=== PATIENT | male | born 1965 | race Caucasian/White ===

== ENCOUNTER 2016-12-11 20:16 | Inpatient (IN) | payer MEDICAID ==
[~2016-12-11] VITALS: Ht 185.4 cm; Wt 73.2 kg
[2016-12-11 21:28] LABS: BASOPHIL % 0.7 % (0-2); PLATELET COUNT 224 x10^3mcL (130-400)
[2016-12-11 21:30] LABS: RED CELL DISTRIBUTION WIDTH 15.3 % (11.5-14.5)
[2016-12-11 21:34] LABS: CALCIUM 8.4 mg/dL (8.5-10.1); CARBON DIOXIDE 30.9 mmol/L (21-32); CHLORIDE SERUM 103 mmol/L (98-107); GFR1 > 60 mL/min; GLUCOSE SERUM 81 mg/dL (74-106); SODIUM SERUM 142 mmol/L (136-145)
[2016-12-11] MEDS ORDERED: MILLIPRED5 M1 (21:37)
[2016-12-11] MEDS ORDERED: ALBUTEROL1.25 MG/3 (21:37)
[2016-12-11 21:38] LABS: ALBUMIN 3.7 g/dL (3.4-5.0); ALKALINE PHOSPHATASE 92 U/L (46-116); ALT/SGPT 78 U/L (16-63); AST/SGOT 93 U/L (15-37); BILIRUBIN TOTAL 0.3 mg/dL (0.20-1.00); CHOLESTEROL 238 mg/dL (<200); CHOLESTEROL/HDL RATIO 2.1; HDL CHOLESTEROL 113 mg/dL (40-60); LIPASE 331 IU/L (73-393); TOTAL PROTEIN, SERUM 7.8 g/dL (6.4-8.2); TRIGLYCERIDES 67 mg/dL (<150)
[2016-12-11 21:52] LABS: T3 TOTAL 0.96 ng/mL
[2016-12-11 22:04] LABS: FREE T4 1.1 ng/dL (0.76-1.46); FREE THYROXINE INDEX 2.3 ug/dL (1.4-4.5); T4(THYROXINE) 5.8 ug/dL (4.7-13.3)
[2016-12-11 22:17] LABS: UA SPECIFIC GRAVITY >=1.030 (1.005-1.035); microscopic required? YES; urine erythrocyte NEGATIVE (NEGATIVE)
[2016-12-11 22:26] LABS: AMPHETAMINE QUAL UR NONE DETECTED (NEG <=1000)
[2016-12-11 22:36] VITALS: BP 115/75
[2016-12-11 23:23] LABS: MAGNESIUM 2.1 mg/dL (1.8-2.4); PHOSPHOROUS 3.9 mg/dL (2.5-4.9)
[2016-12-12 05:33] VITALS: BP 114/74
[2016-12-12 05:43] VITALS: BP 121/72
[2016-12-12 06:18] LABS: BASOPHIL % 0.4 % (0-2); PLATELET COUNT 198 x10^3mcL (130-400)
[2016-12-12 06:29] LABS: CALCIUM 7.5 mg/dL (8.5-10.1); CARBON DIOXIDE 24.3 mmol/L (21-32); CHLORIDE SERUM 107 mmol/L (98-107); CREATININE SERUM 0.8 mg/dL (0.7-1.3); GFR1 > 60 mL/min; GLUCOSE SERUM 66 mg/dL (74-106); MAGNESIUM 2.1 mg/dL (1.8-2.4); PHOSPHOROUS 3.3 mg/dL (2.5-4.9); POTASSIUM SERUM 3.9 mmol/L (3.5-5.1); SODIUM SERUM 144 mmol/L (136-145)
[2016-12-12 06:59] LABS: RED CELL DISTRIBUTION WIDTH 15.7 % (11.5-14.5)
[2016-12-12 09:16] VITALS: BP 136/85
[2016-12-12 17:12] VITALS: BP 125/85
[2016-12-12 21:38] VITALS: BP 138/83
[2016-12-13 05:33] VITALS: BP 150/92
[2016-12-13 06:03] VITALS: BP 150/92
[2016-12-13 06:17] LABS: CALCIUM 8.1 mg/dL (8.5-10.1); CARBON DIOXIDE 27.8 mmol/L (21-32); CHLORIDE SERUM 101 mmol/L (98-107); CREATININE SERUM 0.7 mg/dL (0.7-1.3); GFR1 > 60 mL/min; GLUCOSE SERUM 85 mg/dL (74-106); SODIUM SERUM 138 mmol/L (136-145)
[2016-12-13 09:31] VITALS: BP 145/92
[2016-12-13 12:31] VITALS: BP 133/88
== END 2016-12-13 14:00 | disposition left against medical advice (07) | DRG 770 ==
LOC: ED 20:16 → DU 21:16
PROVIDERS: Specialist; ADMIT Family Medicine
DX: F10.239 Alcohol dependence with withdrawal, unspecified (principal); N17.0 Acute kidney failure with tubular necrosis; G92 Toxic encephalopathy; J44.1 Chronic obstructive pulmonary disease with (acute) exacerbation; E78.2 Mixed hyperlipidemia; F17.210 Nicotine dependence, cigarettes, uncomplicated; Z68.21 Body mass index [BMI] 21.0-21.9, adult
CPT/HCPCS: 83880; 84439; 94150; G0480; J2060; J2405; J3411; J3475; J3490; J3535; J7030; J7512; J7613; J7620; J7644; Q0092

== ENCOUNTER 2017-04-29 18:51 | Inpatient (IN) | payer OTHER ==
[~2017-04-29] VITALS: Ht 193 cm; Wt 71.4 kg
[~2017-04-29 18:51] MED LIST: ALBUTEROL1.25 MG/3; MILLIPRED5 M1
[2017-04-29 21:03] LABS: BASOPHIL % 0.5 % (0-2); PLATELET COUNT 296 x10^3mcL (130-400); RED CELL DISTRIBUTION WIDTH 14.3 % (11.5-14.5)
[2017-04-29 21:13] LABS: CALCIUM 8.4 mg/dL (8.5-10.1); CARBON DIOXIDE 32.7 mmol/L (21-32); CHLORIDE SERUM 100 mmol/L (98-107); CREATININE SERUM 0.9 mg/dL (0.7-1.3); GFR1 > 60 mL/min; GLUCOSE SERUM 95 mg/dL (74-106); POTASSIUM SERUM 4.3 mmol/L (3.5-5.1); SODIUM SERUM 136 mmol/L (136-145)
[2017-04-29 21:18] LABS: ALBUMIN 3.8 g/dL (3.4-5.0); ALKALINE PHOSPHATASE 83 U/L (46-116); ALT/SGPT 24 U/L (16-63); AST/SGOT 28 U/L (15-37); BILIRUBIN TOTAL 0.63 mg/dL (0.20-1.00); TOTAL PROTEIN, SERUM 8.1 g/dL (6.4-8.2)
[2017-04-29 21:33] LABS: microscopic required? NO
[2017-04-29 21:40] LABS: urine erythrocyte NEGATIVE (NEGATIVE)
[2017-04-30] VITALS (7 sets, daily range): BP systolic 100–159; BP diastolic 46–95
[2017-04-30 01:58] LABS: MAGNESIUM 2.2 mg/dL (1.8-2.4); PHOSPHOROUS 3.8 mg/dL (2.5-4.9)
[2017-04-30 02:05] LABS: FREE T4 1.08 ng/dL (0.76-1.46); FREE THYROXINE INDEX 2.8 ug/dL (1.4-4.5); T4(THYROXINE) 7.5 ug/dL (4.7-13.3)
[2017-04-30 02:12] LABS: T3 TOTAL 0.74 ng/mL
[2017-04-30 02:29] LABS: AMPHETAMINE QUAL UR NONE DETECTED (NEG <=1000)
[2017-04-30 06:25] LABS: BASOPHIL % 0.2 % (0-2); PLATELET COUNT 272 x10^3mcL (130-400); RED CELL DISTRIBUTION WIDTH 14.1 % (11.5-14.5)
[2017-04-30 06:57] LABS: CALCIUM 8.5 mg/dL (8.5-10.1); CARBON DIOXIDE 23.4 mmol/L (21-32); CHLORIDE SERUM 102 mmol/L (98-107); CHOLESTEROL 175 mg/dL (<200); CREATININE SERUM 0.9 mg/dL (0.7-1.3); GFR1 > 60 mL/min; GLUCOSE SERUM 133 mg/dL (74-106); POTASSIUM SERUM 4.5 mmol/L (3.5-5.1); SODIUM SERUM 139 mmol/L (136-145)
[2017-04-30 07:01] LABS: CHOLESTEROL/HDL RATIO 5.3; HDL CHOLESTEROL 33 mg/dL (40-60); TRIGLYCERIDES 244 mg/dL (<150)
[2017-05-01 05:58] VITALS: BP 96/50
[2017-05-01 06:58] LABS: MAGNESIUM 2.1 mg/dL (1.8-2.4); PHOSPHOROUS 3.9 mg/dL (2.5-4.9)
[2017-05-01 10:49] VITALS: BP 120/74
[2017-05-01] MEDS ORDERED: ATI1 PO (11:31)
[2017-05-01 12:00] VITALS: BP 120/74
== END 2017-05-01 12:48 | disposition home or self-care (01) | DRG 775 ==
LOC: ED 18:51 → DU 04-30 00:14
PROVIDERS: Emergency Medicine; ADMIT Family Medicine
DX: F10.229 Alcohol dependence with intoxication, unspecified (principal); F10.239 Alcohol dependence with withdrawal, unspecified; G92 Toxic encephalopathy; J45.901 Unspecified asthma with (acute) exacerbation; E83.51 Hypocalcemia; E78.5 Hyperlipidemia, unspecified; Z68.1 Body mass index [BMI] 19.9 or less, adult; F17.210 Nicotine dependence, cigarettes, uncomplicated; T51.0X1A Toxic effect of ethanol, accidental (unintentional), initial encounter
CPT/HCPCS: 83880; 84439; 94150; G0480; J2920; J2930; J3490; J7030

== ENCOUNTER 2017-07-17 15:31 | Emergency (ER) | payer OTHER ==
[~2017-07-17] VITALS: Ht 193 cm; Wt 76.7 kg
[~2017-07-17 15:31] MED LIST changes: +ATI1 PO
[2017-07-17 16:17] VITALS: Ht 193 cm; Wt 76.7 kg
[2017-07-17 17:57] LABS: BASOPHIL % 1.8 % (0-2); PLATELET COUNT 346 x10^3mcL (130-400); RED CELL DISTRIBUTION WIDTH 14.3 % (11.5-14.5)
[2017-07-17 18:09] LABS: CALCIUM 8.4 mg/dL (8.5-10.1); CARBON DIOXIDE 28.7 mmol/L (21-32); CHLORIDE SERUM 102 mmol/L (98-107); CREATININE SERUM 0.8 mg/dL (0.7-1.3); GFR1 > 60 mL/min; GLUCOSE SERUM 105 mg/dL (74-106); POTASSIUM SERUM 3.7 mmol/L (3.5-5.1); SODIUM SERUM 141 mmol/L (136-145)
[2017-07-17 18:12] LABS: ALBUMIN 3.6 g/dL (3.4-5.0); ALKALINE PHOSPHATASE 284 U/L (46-116); ALT/SGPT 66 U/L (16-63); AMYLASE 91 U/L (25-115); AST/SGOT 62 U/L (15-37); BILIRUBIN TOTAL 0.5 mg/dL (0.20-1.00); LIPASE 994 IU/L (73-393); TOTAL PROTEIN, SERUM 7.9 g/dL (6.4-8.2)
[2017-07-17 18:13] LABS: UA SPECIFIC GRAVITY >=1.030 (1.005-1.035); microscopic required? YES; urine erythrocyte NEGATIVE (NEGATIVE)
[2017-07-17 21:01] VITALS: BP 143/78
== END 2017-07-17 21:01 | disposition home or self-care (01) ==
LOC: ED 15:31
PROVIDERS: Emergency Medicine
DX: K29.00 Acute gastritis without bleeding (principal); K85.90 Acute pancreatitis without necrosis or infection, unspecified; F10.239 Alcohol dependence with withdrawal, unspecified
CPT/HCPCS: 83880; 99406; G0480; J2405; J3411; J3475; J3490; J7030; Q0092

== ENCOUNTER 2017-07-23 12:02 | Inpatient (IN) | payer OTHER ==
[~2017-07-23] VITALS: Ht 193 cm; Wt 63.6 kg
[2017-07-23 12:14] VITALS: Ht 193 cm; Wt 63.6 kg
[2017-07-23 13:22] LABS: BASOPHIL % 0.5 % (0-2); PLATELET COUNT 337 x10^3mcL (130-400)
[2017-07-23 13:24] LABS: RED CELL DISTRIBUTION WIDTH 15.2 % (11.5-14.5)
[2017-07-23 13:33] LABS: CHLORIDE SERUM 99 mmol/L (98-107); CREATININE SERUM 0.7 mg/dL (0.7-1.3); GFR1 > 60 mL/min; GLUCOSE SERUM 102 mg/dL (74-106); POTASSIUM SERUM 4.3 mmol/L (3.5-5.1); SODIUM SERUM 135 mmol/L (136-145)
[2017-07-23 13:37] LABS: ALKALINE PHOSPHATASE 764 U/L (46-116); ALT/SGPT 201 U/L (16-63); AST/SGOT 198 U/L (15-37); BILIRUBIN TOTAL 3.01 mg/dL (0.20-1.00); TOTAL PROTEIN, SERUM 7.6 g/dL (6.4-8.2)
[2017-07-23 13:41] LABS: ALBUMIN 3.1 g/dL (3.4-5.0)
[2017-07-23 13:53] LABS: LIPASE 2180 IU/L (73-393)
[2017-07-23] MEDS ORDERED: ATIVAN1 MG (14:24)
[2017-07-23] MEDS ORDERED: TRAMADOL HCL50 MG (14:29)
[2017-07-23 14:51] LABS: microscopic required? NO
[2017-07-23 15:28] VITALS: BP 128/93
[2017-07-23 15:37] VITALS: BP 125/87
[2017-07-23 15:49] LABS: UA SPECIFIC GRAVITY 1.025 (1.005-1.035); urine erythrocyte NEGATIVE (NEGATIVE)
[2017-07-23 15:52] LABS: AMPHETAMINE QUAL UR NONE DETECTED (NEG <=1000)
[2017-07-23 16:10] LABS: MAGNESIUM 2.1 mg/dL (1.8-2.4)
[2017-07-23 16:12] LABS: CHOLESTEROL/HDL RATIO 2.9
[2017-07-23 19:40] VITALS: BP 129/86
[2017-07-23 21:26] VITALS: BP 115/70
[2017-07-24 05:57] VITALS: BP 138/89
[2017-07-24 07:32] LABS: BASOPHIL % 0.4 % (0-2); CALCIUM 8.6 mg/dL (8.5-10.1); CARBON DIOXIDE 26.4 mmol/L (21-32); CHLORIDE SERUM 101 mmol/L (98-107); CREATININE SERUM 0.7 mg/dL (0.7-1.3); GFR1 > 60 mL/min; GLUCOSE SERUM 96 mg/dL (74-106); PLATELET COUNT 303 x10^3mcL (130-400); RED CELL DISTRIBUTION WIDTH 15.5 % (11.5-14.5); SODIUM SERUM 135 mmol/L (136-145)
[2017-07-24 10:35] VITALS: BP 134/90
[2017-07-24 13:58] VITALS: BP 123/82
[2017-07-24 18:39] VITALS: BP 122/84
[2017-07-24 20:36] VITALS: BP 147/89
[2017-07-25 05:08] VITALS: BP 124/72
[2017-07-25 07:03] LABS: BASOPHIL % 0.3 % (0-2); PLATELET COUNT 305 x10^3mcL (130-400)
[2017-07-25 07:13] LABS: RED CELL DISTRIBUTION WIDTH 15.4 % (11.5-14.5)
[2017-07-25 07:34] LABS: CALCIUM 8.7 mg/dL (8.5-10.1); CARBON DIOXIDE 27.8 mmol/L (21-32); CHLORIDE SERUM 99 mmol/L (98-107); CREATININE SERUM 0.8 mg/dL (0.7-1.3); GFR1 > 60 mL/min; GLUCOSE SERUM 149 mg/dL (74-106); MAGNESIUM 2.2 mg/dL (1.8-2.4); PHOSPHOROUS 3.5 mg/dL (2.5-4.9); POTASSIUM SERUM 3.9 mmol/L (3.5-5.1); SODIUM SERUM 135 mmol/L (136-145)
[2017-07-25 10:00] VITALS: BP 125/86
[2017-07-25 13:07] LABS: BILIRUBIN DIRECT 2.28 mg/dL (0.0-0.2); BILIRUBIN TOTAL 2.9 mg/dL (0.20-1.00); TOTAL PROTEIN, SERUM 6.8 g/dL (6.4-8.2)
[2017-07-25 13:08] LABS: ALBUMIN 2.8 g/dL (3.4-5.0)
[2017-07-25 13:30] VITALS: BP 127/85
[2017-07-25 16:52] VITALS: BP 148/91
[2017-07-25 21:05] VITALS: BP 156/98
[2017-07-25 22:05] VITALS: BP 141/90
[2017-07-26 05:31] VITALS: BP 121/76
[2017-07-26 07:10] LABS: CALCIUM 8.6 mg/dL (8.5-10.1); CARBON DIOXIDE 26.4 mmol/L (21-32); CHLORIDE SERUM 99 mmol/L (98-107); CREATININE SERUM 0.7 mg/dL (0.7-1.3); GFR1 > 60 mL/min; GLUCOSE SERUM 82 mg/dL (74-106); MAGNESIUM 1.9 mg/dL (1.8-2.4); PHOSPHOROUS 3.7 mg/dL (2.5-4.9); POTASSIUM SERUM 3.8 mmol/L (3.5-5.1); SODIUM SERUM 136 mmol/L (136-145)
[2017-07-26 07:26] LABS: BASOPHIL % 0.5 % (0-2); PLATELET COUNT 320 x10^3mcL (130-400); RED CELL DISTRIBUTION WIDTH 15.5 % (11.5-14.5)
[2017-07-26 09:41] VITALS: BP 127/87
[2017-07-26 12:33] VITALS: BP 114/83
[2017-07-26 13:56] LABS: ALBUMIN 2.8 g/dL (3.4-5.0); BILIRUBIN DIRECT 0.81 mg/dL (0.0-0.2); BILIRUBIN TOTAL 1.43 mg/dL (0.20-1.00); TOTAL PROTEIN, SERUM 6.7 g/dL (6.4-8.2)
[2017-07-26] MEDS ORDERED: FOL1 PO (14:22)
[2017-07-26] MEDS ORDERED: THERA TABS1 TAB PO (14:23)
[2017-07-26] MEDS ORDERED: NIC21 TD (14:23)
[2017-07-26] MEDS ORDERED: THI100 PO (14:23)
[2017-07-26] MEDS ORDERED: FLA250 PO (14:38)
[2017-07-26] MEDS ORDERED: LEVAQUIN750 MG PO (14:38)
[2017-07-26] MEDS ORDERED: LAC PO (14:38)
[2017-07-26 14:44] VITALS: BP 114/83
== END 2017-07-26 15:12 | disposition home or self-care (01) | DRG 282 ==
LOC: ED 12:02 → DU 14:38 → EDBEDREQ 14:38 → DU 15:26 → MU 07-26 09:01
PROVIDERS: Emergency Medicine; Family Medicine; Internal Medicine Gastroenterology
PROC: 0D798ZZ Dilation of Duodenum, Via Natural or Artificial Opening Endoscopic (ICD-10-PCS; principal; 2017-07-25 11:00)
PROC: BF101ZZ Fluoroscopy of Bile Ducts using Low Osmolar Contrast (ICD-10-PCS; 2017-07-25 11:00)
PROC: 0F798DZ Dilation of Common Bile Duct with Intraluminal Device, Via Natural or Artificial Opening Endoscopic (ICD-10-PCS; 2017-07-25 11:00)
DX: K85.90 Acute pancreatitis without necrosis or infection, unspecified (principal); K31.5 Obstruction of duodenum; R56.9 Unspecified convulsions; K70.10 Alcoholic hepatitis without ascites; R74.0 Nonspecific elevation of levels of transaminase and lactic acid dehydrogenase [LDH]; J44.9 Chronic obstructive pulmonary disease, unspecified; F17.210 Nicotine dependence, cigarettes, uncomplicated; F10.10 Alcohol abuse, uncomplicated; Z68.21 Body mass index [BMI] 21.0-21.9, adult; Z98.41 Cataract extraction status, right eye
CPT/HCPCS: 43235; 43262; 83880; 94150; C1769; C2625; C9113; G0480; J1610; J2175; J2250; J2405; J2543; J2704; J3010; J3490; J7030; J7120; J7620; Q0092; Q9967

== ENCOUNTER 2017-09-05 15:09 | Emergency (ER) | payer OTHER ==
[~2017-09-05] VITALS: Ht 193 cm; Wt 75.0 kg
[~2017-09-05 15:09] MED LIST changes: +ATIVAN1 MG; +FLA250 PO; +FOL1 PO; +LAC PO; +LEVAQUIN750 MG PO; +NIC21 TD; +THERA TABS1 TAB PO; +THI100 PO; +TRAMADOL HCL50 MG
[2017-09-05 15:20] VITALS: Ht 193 cm; Wt 75.0 kg
[2017-09-05 16:10] LABS: BASOPHIL % 0.6 % (0-2); RED CELL DISTRIBUTION WIDTH 13.4 % (11.5-14.5)
[2017-09-05 16:15] LABS: CALCIUM 10.5 mg/dL (8.5-10.1); CARBON DIOXIDE 32.3 mmol/L (21-32); CHLORIDE SERUM 101 mmol/L (98-107); CREATININE SERUM 0.9 mg/dL (0.7-1.3); GFR1 > 60 mL/min; GLUCOSE SERUM 129 mg/dL (74-106); POTASSIUM SERUM 3.7 mmol/L (3.5-5.1); SODIUM SERUM 140 mmol/L (136-145)
[2017-09-05 16:18] LABS: PLATELET COUNT 446 x10^3mcL (130-400)
[2017-09-05 16:20] LABS: ALBUMIN 3.7 g/dL (3.4-5.0); ALKALINE PHOSPHATASE 104 U/L (46-116); ALT/SGPT 25 U/L (16-63); AST/SGOT 13 U/L (15-37); BILIRUBIN TOTAL 0.3 mg/dL (0.20-1.00); LIPASE 230 IU/L (73-393)
[2017-09-05 18:12] VITALS: BP 104/60
== END 2017-09-05 18:12 | disposition home or self-care (01) ==
LOC: ED 15:09
PROVIDERS: Emergency Medicine
DX: R10.11 Right upper quadrant pain (principal); F17.210 Nicotine dependence, cigarettes, uncomplicated; Z71.6 Tobacco abuse counseling
CPT/HCPCS: 99406; J1885; J2550; J3010; J7030; Q0092; Q0162

== ENCOUNTER 2017-09-06 14:34 | Inpatient (IN) | payer OTHER ==
[~2017-09-06] VITALS: Ht 193 cm; Wt 70.1 kg
[2017-09-06 14:57] VITALS: Ht 193 cm; Wt 70.1 kg
[2017-09-06 16:45] LABS: CALCIUM 9.6 mg/dL (8.5-10.1); CARBON DIOXIDE 32.6 mmol/L (21-32); CHLORIDE SERUM 99 mmol/L (98-107); CREATININE SERUM 0.9 mg/dL (0.7-1.3); GFR1 > 60 mL/min; GLUCOSE SERUM 123 mg/dL (74-106); POTASSIUM SERUM 3.3 mmol/L (3.5-5.1); SODIUM SERUM 140 mmol/L (136-145)
[2017-09-06 16:49] LABS: ALBUMIN 3.7 g/dL (3.4-5.0); ALKALINE PHOSPHATASE 109 U/L (46-116); ALT/SGPT 15 U/L (16-63); AMYLASE 35 U/L (25-115); AST/SGOT 14 U/L (15-37); BILIRUBIN TOTAL 0.3 mg/dL (0.20-1.00); LIPASE 222 IU/L (73-393); TOTAL PROTEIN, SERUM 8.2 g/dL (6.4-8.2)
[2017-09-06 16:58] LABS: BASOPHIL % 0.5 % (0-2); RED CELL DISTRIBUTION WIDTH 13.7 % (11.5-14.5)
[2017-09-06 17:01] LABS: PLATELET COUNT 429 x10^3mcL (130-400)
[2017-09-06 17:05] LABS: microscopic required? YES; urine erythrocyte NEGATIVE (NEGATIVE)
[2017-09-06 17:13] LABS: AMPHETAMINE QUAL UR NONE DETECTED (NEG <=1000)
[2017-09-06 20:26] LABS: CHOLESTEROL/HDL RATIO 4.4; MAGNESIUM 2.4 mg/dL (1.8-2.4); PHOSPHOROUS 3.7 mg/dL (2.5-4.9)
[2017-09-06 20:31] VITALS: BP 114/72
[2017-09-06 20:33] LABS: T3 TOTAL 1.07 ng/mL
[2017-09-06 20:53] VITALS: BP 114/72
[2017-09-06 21:10] LABS: FREE T4 1.4 ng/dL (0.76-1.46); FREE THYROXINE INDEX 3.4 ug/dL (1.4-4.5); T4(THYROXINE) 9.9 ug/dL (4.7-13.3)
[2017-09-07 05:36] VITALS: BP 96/56
[2017-09-07 05:53] LABS: BASOPHIL % 0.5 % (0-2); RED CELL DISTRIBUTION WIDTH 13.3 % (11.5-14.5)
[2017-09-07 06:16] LABS: PLATELET COUNT 428 x10^3mcL (130-400)
[2017-09-07 07:08] LABS: CALCIUM 8.8 mg/dL (8.5-10.1); CARBON DIOXIDE 27.6 mmol/L (21-32); CHLORIDE SERUM 101 mmol/L (98-107); CREATININE SERUM 0.9 mg/dL (0.7-1.3); GFR1 > 60 mL/min; GLUCOSE SERUM 137 mg/dL (74-106); POTASSIUM SERUM 3.4 mmol/L (3.5-5.1); SODIUM SERUM 138 mmol/L (136-145)
[2017-09-07 09:19] VITALS: BP 103/72
[2017-09-07 13:41] VITALS: BP 119/73
[2017-09-07 17:59] VITALS: BP 119/73
[2017-09-07 19:30] VITALS: BP 113/63
[2017-09-08 06:28] VITALS: BP 110/72
[2017-09-08 07:22] LABS: BASOPHIL % 0.4 % (0-2); PLATELET COUNT 381 x10^3mcL (130-400); RED CELL DISTRIBUTION WIDTH 13.5 % (11.5-14.5)
[2017-09-08 08:25] LABS: CALCIUM 8.5 mg/dL (8.5-10.1); CARBON DIOXIDE 26.6 mmol/L (21-32); CHLORIDE SERUM 103 mmol/L (98-107); CREATININE SERUM 0.8 mg/dL (0.7-1.3); GFR1 > 60 mL/min; GLUCOSE SERUM 139 mg/dL (74-106); POTASSIUM SERUM 3.4 mmol/L (3.5-5.1); SODIUM SERUM 138 mmol/L (136-145)
[2017-09-08 08:55] VITALS: BP 106/69
[2017-09-08 12:31] VITALS: BP 110/68
[2017-09-08 16:34] VITALS: BP 109/69
[2017-09-08 19:59] VITALS: BP 121/75
[2017-09-09 05:41] VITALS: BP 100/73
[2017-09-09 06:33] LABS: BASOPHIL % 0.6 % (0-2); PLATELET COUNT 350 x10^3mcL (130-400); RED CELL DISTRIBUTION WIDTH 13.5 % (11.5-14.5)
[2017-09-09 07:06] LABS: CALCIUM 8.6 mg/dL (8.5-10.1); CARBON DIOXIDE 22.8 mmol/L (21-32); CHLORIDE SERUM 106 mmol/L (98-107); CREATININE SERUM 0.8 mg/dL (0.7-1.3); GFR1 > 60 mL/min; GLUCOSE SERUM 124 mg/dL (74-106); POTASSIUM SERUM 4.1 mmol/L (3.5-5.1); SODIUM SERUM 137 mmol/L (136-145)
[2017-09-09 08:34] VITALS: BP 102/57
[2017-09-09 13:09] VITALS: BP 100/68
[2017-09-09 16:55] VITALS: BP 118/85
[2017-09-09 21:29] VITALS: BP 121/74
[2017-09-10 05:43] VITALS: BP 118/66
[2017-09-10 06:20] LABS: BASOPHIL % 0.5 % (0-2); PLATELET COUNT 330 x10^3mcL (130-400); RED CELL DISTRIBUTION WIDTH 13.7 % (11.5-14.5)
[2017-09-10 06:24] LABS: CALCIUM 8.6 mg/dL (8.5-10.1); CHLORIDE SERUM 105 mmol/L (98-107); CREATININE SERUM 0.8 mg/dL (0.7-1.3); GFR1 > 60 mL/min; GLUCOSE SERUM 117 mg/dL (74-106); POTASSIUM SERUM 3.6 mmol/L (3.5-5.1); SODIUM SERUM 140 mmol/L (136-145)
[2017-09-10 08:53] VITALS: BP 118/66
== END 2017-09-10 09:55 | disposition left against medical advice (07) | DRG 222 ==
LOC: ED 14:34 → DU 19:12
PROVIDERS: Emergency Medicine; Family Medicine; Internal Medicine Gastroenterology
PROC: 0D798ZZ Dilation of Duodenum, Via Natural or Artificial Opening Endoscopic (ICD-10-PCS; 2017-09-09)
PROC: 0D968ZZ Drainage of Stomach, Via Natural or Artificial Opening Endoscopic (ICD-10-PCS; principal; 2017-09-09 09:00)
PROC: 0DB98ZX Excision of Duodenum, Via Natural or Artificial Opening Endoscopic, Diagnostic (ICD-10-PCS; 2017-09-09 09:00)
PROC: 0DB68ZX Excision of Stomach, Via Natural or Artificial Opening Endoscopic, Diagnostic (ICD-10-PCS; 2017-09-09 09:00)
DX: K29.80 Duodenitis without bleeding (principal); N17.0 Acute kidney failure with tubular necrosis; J45.909 Unspecified asthma, uncomplicated; K35.80 Unspecified acute appendicitis; F17.210 Nicotine dependence, cigarettes, uncomplicated; E87.6 Hypokalemia; E78.5 Hyperlipidemia, unspecified; F43.9 Reaction to severe stress, unspecified; K80.20 Calculus of gallbladder without cholecystitis without obstruction; K76.0 Fatty (change of) liver, not elsewhere classified; F41.1 Generalized anxiety disorder
CPT/HCPCS: 43235; 82962; 83880; 84439; C1769; C9113; G0480; J1200; J1610; J1885; J1956; J2250; J2310; J2765; J3010; J3490; J7030; J7620; J8597; Q0092; Q9967